=== PATIENT | male | born 1975 | race Caucasian/White ===

== ENCOUNTER 2019-10-03 17:05 | Emergency (ER) | payer OTHER ==
[2019-10-03] MEDS ORDERED: Sodium Chloride 0.9% 10 ML Syringe FLUSH PRN (17:26)
[2019-10-03] MEDS ORDERED: Sodium Chloride 0.9% 1,000 ML IV SCH (17:30)
--- NOTE | 2019-10-03 17:31 | EDM.PDOC ---
ED HPI GENERAL MEDICAL PROBLEM - General Chief Complaint: Neurological Problem Stated Complaint: DIZZINESS Time Seen by Provider: 10/03/19 17:09 Source of Information: Reports: Patient History Limitations: Reports: No Limitations ( ) - History of Present Illness INITIAL COMMENTS - FREE TEXT/NARRATIVE: Patient is a 43-year-old male who presents with complaints of dizziness and fatigue. He states he was at work when he became dizzy. He was not doing anything overly exertional. He does have a mild headache. Denies any nausea or vomiting. At this time, he states the dizziness is starting to improve but he feels "very tired ". He has not been sick with any respiratory or GI symptoms. States that he has drank a sixpack of Coke today but not water. He describes the dizziness as being lightheaded not the sensation of the room spinning. He has a history of factor V and high blood pressure. States he used to take medications for his blood pressure but he has not for a while. - Related Data Allergies Allergy/AdvReac Type Severity Reaction Status Date / Time Penicillins Allergy Cannot Verified 10/03/19 17:15 Remember Home Meds: Home Meds . [No Known Home Meds] 10/03/19 [History] Past Medical History - Past Health History Medical/Surgical History: Denies Medical/Surgical History Hematologic History: Reports: Other (See Below) Other Hematologic History: factor V Social & Family History - Family History Family Medical History: Noncontributory - Tobacco Use Smoking Status *Q: Current Every Day Smoker Years of Tobacco use: 20 Packs/Tins Daily: 0.7 - Caffeine Use Caffeine Use: Reports: Soda - Recreational Drug Use Recreational Drug Use: No ED ROS GENERAL - Review of Systems Review Of Systems: See Below Constitutional: Reports: Fatigue. Denies: Fever, Chills, Diaphoresis HEENT: Reports: No Symptoms Respiratory: Reports: No Symptoms. Denies: Shortness of Breath Cardiovascular: Reports: No Symptoms. Denies: Chest Pain, Dyspnea on Exertion, Palpitations Endocrine: Reports: No Symptoms GI/Abdominal: Reports: No Symptoms. Denies: Abdominal Pain, Diarrhea, Nausea, Vomiting : Reports: No Symptoms Musculoskeletal: Reports: No Symptoms Skin: Reports: No Symptoms Neurological: Reports: Dizziness, Headache. Denies: Confusion, Numbness, Paresthesia, Syncope, Difficulty Walking, Weakness, Change in Speech Psychiatric: Reports: No Symptoms. Denies: Anxiety Hematologic/Lymphatic: Reports: No Symptoms Immunologic: Reports: No Symptoms ED EXAM, NEURO - Physical Exam Exam: See Below Exam Limited By: No Limitations General Appearance: Alert, WD/WN, No Apparent Distress Eye Exam: Bilateral Eye: PERRL Head Exam: Atraumatic, Normocephalic Respiratory/Chest: No Respiratory Distress, Lungs Clear, Normal Breath Sounds, No Accessory Muscle Use, Chest Non-Tender Cardiovascular: Normal Peripheral Pulses, Regular Rate, Rhythm, No Edema, No Gallop, No JVD, No Murmur, No Rub GI/Abdominal: Normal Bowel Sounds, Soft, Non-Tender, No Organomegaly, No Distention, No Abnormal Bruit, No Mass Neurological: Alert, Normal Mood/Affect, Normal Dorsiflexion, CN II-XII Intact, Normal Plantar Flexion, Normal Gait, Normal Reflexes, No Motor/Sensory Deficits , Oriented x 3 Psychiatric: Normal Affect, Normal Mood Skin Exam: Warm, Dry, Intact, Normal Color, No Rash EKG INTERPRETATION EKG Date: 10/03/19 Time: 17:32 Rhythm: NSR Rate (Beats/Min): 99 [place]: Normal P-Wave: Enlarged QRS: Normal ST-T: Normal QT: Normal EKG Interpretation Comments: left atrial enlargement P >60ms EKG interpreted by Dr. Sherrill MD. Course - Vital Signs Last Recorded V/S: Last Vital Signs Temp 98.4 F 10/03/19 17:11 Pulse 108 H 10/03/19 17:11 Resp 19 10/03/19 17:11 BP 171/109 H 10/03/19 17:11 Pulse Ox 97 10/03/19 17:11 Orthostatic Blood Pressure [ 162/106 Standing] Orthostatic Blood Pressure [ 168/105 Sitting] Orthostatic Blood Pressure [ 159/103 Supine] - Orders/Labs/Meds Orders: Active Orders 24 hr Category Date Time Status EKG Documentation Completion [RC] STAT Care 10/03/19 17:26 Active Orthostatic Vital Signs [RC] ASDIRECTED Care 10/03/19 17:26 Active Peripheral IV Care [RC] . DIRECTED Care 10/03/19 17:26 Active Peripheral IV Insertion Adult [OM.PC] Stat Oth 10/03/19 17:25 Ordered Labs: Laboratory Tests 10/03/19 10/03/1910/03/20 Range/Units 17:15 17:15 17:15 WBC 7.84 (4.23-9.07) K/mm3 RBC 5.39 (4.63-6.08) M/mm3 Hgb 16.6 (13.7-17.5) gm/dl Hct 47.9 (40.1-51.0) % MCV 88.9 (79.0-92.2) fl MCH 30.8 (25.7-32.2) pg MCHC 34.7 (32.2-35.5) g/dl RDW Std Deviation 43.8 (35.1-43.9) fL Plt Count 263 (163-337) K/mm3 MPV 9.5 (9.4-12.3) fl Neut % (Auto) 60.0 (34.0-67.9) % Lymph % (Auto) 30.6 (21.8-53.1) % [place] % (Auto) 6.1 (5.3-12.2) % Eos % (Auto) 2.8 (0.8-7.0) Baso % (Auto) 0.4 (0.1-1.2) % Neut # (Auto) 4.70 (1.78-5.38) K/mm3 Lymph # (Auto) 2.40 (1.32-3.57) K/mm3 [place] # (Auto) 0.48 (0.30-0.82) K/mm3 Eos # (Auto) 0.22 (0.04-0.54) K/mm3 Baso # (Auto) 0.03 (0.01-0.08) K/mm3 Sodium 141 (136-145) mEq/L Potassium 3.8 (3.5-5.1) mEq/L Chloride 102 (98-107) mEq/L Carbon Dioxide 28 (21-32) mEq/L Anion Gap 14.8 (5-15) BUN 12 (7-18) mg/dL Creatinine 1.1 (0.7-1.3) mg/dL Est Cr Clr Drug Dosing 78.58 mL/min Estimated GFR (MDRD) > 60 (>60) mL/min BUN/Creatinine Ratio 10.9 L (14-18) Glucose 92 (74-106) mg/dL Calcium 9.0 (8.5-10.1) mg/dL Total Bilirubin 0.3 (0.2-1.0) mg/dL AST 13 L (15-37) U/L ALT 22 (16-63) U/L Alkaline Phosphatase 90 (46-116) U/L Troponin I < 0.017 (0.00-0.056) ng/mL Total Protein 7.3 (6.4-8.2) g/dl Albumin 4.2 (3.4-5.0) g/dl Globulin 3.1 gm/dL Albumin/Globulin Ratio 1.4 (1-2) TSH 3rd Generation 1.976 (0.358-3.74) uIU/mL Meds: Medications Discontinued Medications Generic Name Dose Route Start Last Admin Trade Name Freq PRN Reason Stop Dose Admin Sodium Chloride 1,000 mls @ 999 mls/hr 10/03/19 17:30 10/03/19 17:40 Normal Saline IV 999 mls/hr ASDIRECTED LASHONDA Administration Sodium Chloride 10 ml 10/03/19 17:26 10/03/19 17:40 Saline Flush FLUSH 10 ml ASDIRECTED PRN Administration Keep Vein Open - Re-Assessments/Exams Free Text/Narrative Re-Assessment/Exam: On exam, patient has no neurologic deficits. Pupils are equal and reactive. Tracks with his eyes well. No nystagmus present. Grasps are equal and strong. Facial movements are symmetrical. Patient states that his lightheadedness is improving, however he just feels very tired at this time. He denies any chest pain, shortness of breath, or diaphoresis at the onset of symptoms. He states that he not feel that he overexerted himself at work today. We will do basic labs at this time including a CBC, CMP, troponin as well as an EKG and a chest x -ray. We will start with a 1 L bolus of normal saline. 10/03/19 19:09 Patient's work-up was grossly unremarkable. He states that he feels better denies any further dizziness states that he is a little tired. His blood pressure has been consistently elevated last reading was 147/99. Patient states that he does have lisinopril at home that he had been prescribed. I did recommend that he start taking this as prescribed as his blood pressures are higher than we would like them. Patient is from [place] and plans on going back there either tomorrow or the next day once he is finished with his job here. I recommend that he follow-up with his primary care provider to monitor his blood pressures. Discharge instructions as documented. Departure - Departure Time of Disposition: 19:10 Disposition: Home, Self-Care 01 Condition: Fair Clinical Impression: Dizziness, nonspecific - Discharge Information *PRESCRIPTION DRUG MONITORING PROGRAM REVIEWED*: No *COPY OF PRESCRIPTION DRUG MONITORING REPORT IN PATIENT KATIE: No Instructions: Dizziness Referrals: PCP,Not In Area [Primary Care Provider] - Forms: ED Department Discharge Additional Instructions: You were seen in the emergency department today after having an episode of dizziness while at work. Your work-up included hematology, EKG, and a chest x- ray. Your work-up was normal, however your blood pressure was mildly elevated while in the ER. You did state that you have lisinopril at home that you have been prescribed. I would recommend that you start taking that again and follow- up with your primary care provider to continuously monitor your blood pressures. Ensure that you are taking in an adequate amount of fluids. If you should experience any worsening symptoms, please do not hesitate to return to the emergency department. Sepsis Event Note - Evaluation Sepsis Screening Result: No Definite Risk - Focused Exam Date Exam was Performed: 10/04/19 Time Exam was Performed: 11:11 - My Orders Last 24 Hours: My Active Orders 10/03/19 17:25 Peripheral IV Insertion Adult [OM.PC] Stat 10/03/19 17:26 EKG Documentation Completion [RC] STAT Orthostatic Vital Signs [RC] ASDIRECTED Peripheral IV Care [RC] . DIRECTED - Assessment/Plan Last 24 Hours: My Active Orders 10/03/19 17:25 Peripheral IV Insertion Adult [OM.PC] Stat 10/03/19 17:26 EKG Documentation Completion [RC] STAT Orthostatic Vital Signs [RC] ASDIRECTED Peripheral IV Care [RC] . DIRECTED
--- NOTE | 2019-10-04 07:43 | CR ---
Chest: Portable view of the chest was obtained. Comparison: No previous chest x-ray. Heart size and mediastinum are normal. Lungs are clear. Bony structures are grossly intact. Impression: 1. Nothing acute is appreciated on portable chest x-ray. Diagnostic code #1 This report was dictated in [place] Standard Time
== END 2019-10-03 19:20 | disposition home or self-care (01) ==
LOC: JD.ED 17:05
DX: R42 Dizziness and giddiness (principal); I10 Essential (primary) hypertension; F17.210 Nicotine dependence, cigarettes, uncomplicated; Z88.0 Allergy status to penicillin
CPT/HCPCS: 36415; 71045; 80053; 84443; 84484; 85025; 93005; 96360; 96361; 99284; J7030; 93010; 99283